=== PATIENT | female | born 1980 | race African-American/Black ===

== ENCOUNTER 2019-12-18 14:30 | Outpatient (CLI) | payer OTHER, SELFPAY ==
--- NOTE | ~2019-12-18 | US_ITS ---
EXAMINATION: US pelvic complete w TV EXAM DATE: 12/18/2019 15:27 INDICATION: Heavy menses. TECHNIQUE: Pelvic transabdominal and transvaginal sonogram was performed. There are multiple graysca le and Doppler images available for interpretation. There is no prior study for comparison. FINDINGS: Uterus measures 11.7 x 3.1 x 7.1 cm, with focal anterior myometrial region probably fibroi d measuring 1.9 cm. Endometrial stripe measures 3 mm, within normal limits. There is small free pelv ic fluid. Right adnexa: The ovary measures 2.6 x 2.0 x 3.0 cm and is morphologically normal. Ovarian vascular f low confirmed. Left adnexa: The ovary measures 2.8 x 1.7 x 3.0 cm and is morphologically normal. Ovarian vascular fl ow confirmed. IMPRESSION: 1. Small anterior myometrial fibroid Reviewed, dictated and finalized at location A.
== END 2019-12-18 14:31 | disposition home or self-care (01) ==
DX: N92.0 Excessive and frequent menstruation with regular cycle (principal)
CPT/HCPCS: 76830; 76856